=== PATIENT | male | born 1970 | race Caucasian/White ===

== ENCOUNTER 2017-11-14 21:21 | Inpatient (IN) | payer MEDICAID, SELFPAY ==
[2017-11-14 21:23] VITALS: BP 130/89; PULSE 130; RESP 20; TEMP 36.8; O2SAT 88; BMI 29.5
[2017-11-14 21:57] VITALS: O2SAT 94
--- NOTE | 2017-11-14 22:31 | EKG12_ITS ---
Test Reason : SOB Blood Pressure : / mmHG Vent. Rate : 117 BPM Atrial Rate : 117 BPM P-R Int : 168 ms QRS Dur : 086 ms QT Int : 334 ms P-R-T Axes : 063 -13 021 degrees QTc Int : 465 ms Sinus tachycardia Nonspecific T wave abnormality Abnormal ECG Confirmed by RUDY ERNST, TAMANNA ([id number]), communications editor CORKY MCCLAIN ([id number]) on 11/16/2017 1:52:34 PM Referred By: MELA Confirmed By:TAMANNA GRANT MD
--- NOTE | 2017-11-14 22:31 | CT_ITS ---
STUDY: CTA CHEST REASON FOR EXAM: Male, 47 years old. Hypoxia RADIATION DOSAGE (If Supplied By Facility): CTDIvol = ( 11.83 ) mGy, DLP = ( 462.52 ) mGycm TECHNIQUE: The examination was performed with the intravenous administration of 75 ml of Isovue 370 contrast material. Post-processing of the angiographic images was performed, with multiplanar reformation and 3D reconstruction. Individualized dose optimization techniques were used for this CT. COMPARISON: None. FINDINGS: There is moderate size filling defect in the right main pulmonary artery. Moderate size segmental and subsegmental filling defects are seen in the right upper lobe, right middle lobe, right lower lobe, left upper lobe, left lower lobe are consistent with pulmonary emboli. There is no demonstrated pulmonary embolism. Normal thoracic aorta and visualized great vessels. There is no demonstrated aortic dissection. Normal heart and pericardium. Normal mediastinum. Normal hilar regions. Normal visualized trachea and bronchi. The lungs are well expanded. Normal pulmonary parenchyma. Normal pleura. Normal chest wall structures. Normal osseous structures. Normal visualized upper abdomen. CT/CTA Chest W/WO Contrast IMPRESSION: Multiple moderate size bilateral pulmonary emboli in the segmental and subsegmental arteries and in the right main pulmonary artery. Electronically Signed: Warren Gordillo MD at 0:20 EST Tel , Service support ,
[2017-11-14] MEDS: 0.9% Normal Saline 1,000 ML 150 ML IV (22:38)
[2017-11-14 22:50] LABS: Absolute Lymphocyte Count 1.82 X10^3/ul (0.83-4.51); Absolute Neutrophil Count 7.1 X10^3/uL (2.0-7.7); Basophil# 0.02 X10^3/uL; Basophil% 0.2 % (0-1); Eosinophil# 0.06 X10^3/uL; Eosinophils% 0.6 % (0-5); Hematocrit 42.5 % (40-54); Hemoglobin 13.6 g/dl (13.0-16.5); Lymphocyte # 1.82 X10^3/ul (4.0); Lymphocyte % 18.2 % (19-41); Mean Corpuscular Hgb 24.9 pg (27.0-32.0); Mean Corpuscular Volume 77.7 fL (80-94); Mean Platelet Vol. 10.4 fl (6.2-12.0); Neutrophil # 7.08 X10^3/uL (2.7-7.7); Neutrophil % 70.8 % (47-70); POSITIVE COUNT NO; POSITIVE DIFFERENTIAL NO; POSITIVE MORPHOLOGY NO; Platelet Count 207 K/mm3 (150-450); RBC Distribution Width CV 18.7 % (11.6-14.6); RBC Distribution Width SD 51.4 fl (35.1-43.9); Red Blood Count 5.47 M/mm3 (4.6-6.2)
[2017-11-14 22:55] LABS: Anion Gap 10 (5-15); BUN 11 mg/dL (7-18); BUN/Creat Ratio 9.4 RATIO (10-20); Calcium,Total 8.7 mg/dL (8.5-10.1); Chloride 102 mmol/L (98-107); Creatinine, Serum 1.17 mg/dL (0.70-1.30); EST Glomerular Filtration Rate 71 mL/min (>60); Est Glom Filt Rate - Afr Amer 86 mL/min (>60); Estimated Creatinine Clearance 71.19 ml/min; Glucose 308 mg/dL (70-110); Potassium 4.1 mmol/L (3.5-5.1); Sodium Level 135 mmol/L (136-145)
[2017-11-14 23:23] VITALS: BP 136/86; PULSE 112; RESP 26; O2SAT 95
--- NOTE | 2017-11-14 23:26 | ED.DCSUM_ITS ---
- ER Visit Summary Date of Service: 11/14/17 Chief Complaint: Shortness of breath] History of Present Illness: The patient is a 47 M [presents with] shortness of breath for the last 2 days. Patient's had a cough for several weeks. Patient tells me that he was diagnosed with pulmonary embolisms in September 2017. Patient was placed on Eliquis however he ran out after about 30 days and never got the prescription refilled therefore he has been off of Eliquis for greater than a month. Patient complains of exertional dyspnea and feeling dizzy with standing and walking. Patient states that he checked his pulse ox at home and it was running in the 70s. Patient denies any chest pain per se. Patient denies any fevers. Physical Examination: [HEENT-PERRLA, EOMI. Cranial nerves II through XII grossly intact. TMs clear. Mucous membranes moist. No adenopathy. Vital signs-blood pressure 130/89, temp 98.2. Heart rate 130. Respiratory rate 20. Pulse ox was 88% on room air. Cardiovascular-regular rate and rhythm without murmur or ectopy Lungs-clear to auscultation, chest wall stable without crepitus or subcu emphysema Abdomen-normoactive bowel sounds, soft, nontender, no rebound or rigidity, no peritoneal signs. Extremities-intact ?4, normal range of motion, normal pulses, atraumatic] Test Results: [CBC with differential obtained for white blood cell count of 10, hemoglobin 13.6, hematocrit 42.5, platelets 207. Chemistries unremarkable. Troponin is 0.06. EKG obtained showed a sinus tachycardia with a rate of 117 bpm with some nonspecific ST changes. CTA of the chest interpreted by myself as large bilateral pulmonary emboli.] Emergency Department Course and Treatment: [Patient was given 1 mg/kg of Lovenox subcutaneously.] Patient was placed on O2 by Ventimask. Treatment Plan: [Admit] Disposition: [Admit] Impression: [Bilateral pulmonary emboli with hypoxemia] This note was generated with [employer] dictation software. It may contain incorrect words, spelling, and punctuation that were not noted in review of the chart prior to signing ED Disposition - Plan for ED Patient: Chief Complaint: Shortness of Breath Referrals: Care Physician,No Primary [Primary Care Provider] -
--- NOTE | 2017-11-14 23:37 | PCM.HP.STD ---
Problem List (1) Acute respiratory failure with hypoxia Status: Acute (2) Cardiogenic shock Status: Acute (3) Pulmonary emboli Status: Acute Qualifiers: Pulmonary embolism type: saddle Chronicity: acute Acute cor pulmonale presence: with acute cor pulmonale Qualified Code(s): I26.02 - Saddle embolus of pulmonary artery with acute cor pulmonale History of Present Illness Date of Admission: 11/14/17 Chief Complaint: Bilateral PE The patient is a 47 year old male w/ h/o PE admitted for acute respiratory failure secondary to bilateral PE. He was admitted in September for PE and was placed on eliquis. However, there was a change in his PCP. He was unable to get the prescription for the med and therefore stopped going to the doctor and stopped his eliquis. He has been SOB x 2-3 days. He has a minimal dry cough associated with his SOB. His SOB has been getting progressively worse. Nothing appeared to make it better or worse. SOB is persistent and so severe that it interfered with his ADLs. He get dizzy when walking or standing. He checked his vitals at home and found himself to be hypoxic. He was taken to the ED by his brother for workup of his SOB> Past Medical History Allergies No Known Allergies Allergy (Verified 11/14/17 21:28) Home Medications: Ambulatory Orders Medication Instructions Recorded Apixaban [Eliquis] 5 mg PO BID #90 tablet 09/04/17 Lisinopril [Zestril] 10 mg PO DAILY #30 tablet 09/04/17 Metformin HCl [Glucophage] 500 mg PO BIDCM #90 tablet 09/04/17 Smoking Status: Former smoker - *Family History Maternal History Items: No pertinent history Review of Systems Constitutional: Denies: Chills, Fever, Weight Change HEENT: Denies: Head Aches, Sinus Congestion, Sinus Drainage Cardiovascular: Denies: Chest Pain, Palpitations Respiratory: Reports: Cough, Shortness of breath upon exertion, Sputum production Gastrointestinal: Denies: Abdominal Pain, Nausea, Vomiting Genitourinary: Denies: Dysuria Musculoskeletal: Denies: Joint Pain, Joint Tenderness Skin: Denies: Rash, Wounds Neurological: Denies: Numbness, Tingling, Focal weakness Psychiatric: Denies: Anxiety, Depression, Homicidal Ideations, Suicidal Ideations Hematologic/ Lymphatic: Denies: Easy Bruising, Easy Bleeding VTE Information - Inpt Only VTE Present on Admission: No VTE Mechan Device Prophylaxis: SCD's VTE Pharm Prophylaxis ordered?: Yes Patient Problems: Active and Suspected Problems Acute respiratory failure with hypoxia (Acute) - Physical Exam General: Alert, Oriented x3, Cooperative HEENT: Atraumatic, PERRLA, EOMI, Normocephalic Neck: Supple, No JVD, Negative Carotid Bruits Lungs: Clear to auscultation, Normal air movement Cardiovascular: Regular rate, No murmurs Abdomen: Bowel Sounds Present, Soft, Non Tender Extremities: No edema, Capillary Refill Less than 3 Seconds Skin: No rashes, No breakdown Musculoskeletal: No Tenderness to Palpation of Joints or Extremities Neurological: Cranial nerves II-XII grossly intact Psych/Mental Status: Normal Affect, Appropriate Vital Signs Temp Pulse Resp BP Pulse Ox 98.2 F 112 H 26 H 136/86 H 95 11/14/17 21:23 11/14/17 23:23 11/14/17 23:23 11/14/17 23:23 11/14/17 23:23 Oxygen Delivery Method Venturi Mask Weight: 82.8 kg Body Mass Index (BMI) 29.5 Laboratory Tests Past 24 Hrs 11/14/17 11/14/17 21:50 21:50 WBC 10.0 RBC 5.47 Hgb 13.6 Hct 42.5 MCV 77.7 L MCH 24.9 L MCHC 32.0 RDW 18.7 H RDW Differential 51.4 H Plt Count 207 MPV 10.4 Immature Gran % (Auto) 0.200 Neut % (Auto) 70.8 H Lymph % (Auto) 18.2 L [place]leigh % (Auto) 10.0 Eos % (Auto) 0.6 Baso % (Auto) 0.2 Absolute Neuts (auto) 7.1 Absolute Lymphs (auto) 1.82 Total Counted Not Reportable Sodium 135 L Potassium 4.1 Chloride 102 Carbon Dioxide 23.0 Anion Gap 10 BUN 11 Creatinine 1.17 Estim Creat Clear Calc 71.19 Est GFR (MDRD) Af Amer 86 Est GFR (MDRD) Non-Af 71 BUN/Creatinine Ratio 9.4 L Glucose 308 H Calcium 8.7 Troponin I 0.06 Assessment/Plan Active and Suspected Problems Acute respiratory failure with hypoxia (Acute) 47 year old male w/ h/o PE admitted for acute respiratory failure secondary to bilateral PE. 1) Multiple bilateral PE: Most likely secondary to noncompliant w/ eliquis. Will start lovenox anticoagulation dose. Will also get trops and ECHO to look for right heart strain. Monitor. 2) Acute hypoxic respiratory failure: C/w oxygen. Most likely secondary to PE. Monitor. 3) HTN: Resume home meds. Monitor
[2017-11-15] VITALS (24 sets, daily range): BP systolic 86–146; BP diastolic 48–92; PULSE 75–124; RESP 16–28; TEMP 36.2–37.1; O2SAT 91–97; BMI 29.5
--- NOTE | 2017-11-15 00:29 | ED.RN ---
MED SURG BILATERAL PE PONCHO
[2017-11-15] MEDS: Enoxaparin 80 MG/0.8 ML Syringe SC ×2 (01:28→18:03)
[2017-11-15] MEDS: 0.9% Normal Saline 1,000 ML 100 ML IV (01:29)
[2017-11-15 02:13] LABS: BNP,B-Type NATRIURETIC PEPTIDE 168.7 pg/mL (0-100)
--- NOTE | 2017-11-15 05:55 | ECHOD_ITS ---
Reason For Study: ARRHYTHMIA Procedure This was a 2D Doppler, Color Flow transthoracic echocardiogram. Exam performed portable in patient room. Left Ventricle Normal LV size. Left ventricular systolic function is normal. The estimated ejection fraction is 60 %. No regional wall motion abnormalities noted. Right Ventricle Mildly dilated right ventricle. Mild global right ventricular systolic dysfunction. Atria Normal left atrium. Normal right atrium. Mitral Valve Normal mitral valve. Tricuspid Valve Normal tricuspid valve. Moderate (2+) tricuspid valve insufficiency. Pulmonary artery systolic pressure is 70 mmHg. Moderate to severe pulmonary hypertension. Aortic Valve The aortic valve is not well visualized. Pulmonic Valve The pulmonic valve is not well visualized. Great Vessels Mildly dilated aortic root. The pulmonary artery is normal size. Normal inferior vena cava. Pericardium/Pleural No pericardial effusion. MMode/2D Measurements & Calculations LVIDd: 3.5 cm IVSd: 1.3 cm Ao root diam: 3.9 cm LVIDs: 1.8 cm LVPWd: 0.98 cm LA dimension: 3.4 cm RVDd: 4.4 cm FS: 48.6 % EDV(MOD-sp4): 70.2 ml EDV(MOD-sp2): 57.3 ml SV(MOD-sp4): 55.7 ml ESV(MOD-sp4): 14.6 ml EF(MOD-sp2): 50.4 % EF(MOD-sp4): 79.3 % SV(MOD-sp2): 28.9 ml Doppler Measurements & Calculations MV E max dahlia: 71.8 cm/sec Ao V2 max: 128.9 cm/sec LV V1 max: 108.0 cm/sec MV A max dahlia: 126.6 cm/sec Ao max P.6 mmHg LV V1 max P.7 mmHg MV E/A: 0.57 PA V2 max: 68.8 cm/sec TR max dahlia: 407.5 cm/sec TR max P.4 mmHg Interpretation Summary Normal LV size. Left ventricular systolic function is normal. The estimated ejection fraction is 60 %. Moderate (2+) tricuspid valve insufficiency. Pulmonary artery systolic pressure is 70 mmHg. Moderate to severe pulmonary hypertension Compared to the previous the pulmnoary pressures are slightly higher Ordering Physician: Julian Del Toro Performed By: Ayleen Funez, ANGIE, RVT
[2017-11-15 06:19] LABS: Hematocrit 38.5 % (40-54); Hemoglobin 12.6 g/dl (13.0-16.5); Mean Corp Hgb Conc 32.7 g/gl (32-36); Mean Corpuscular Hgb 25.3 pg (27.0-32.0); Mean Corpuscular Volume 77.3 fL (80-94); Mean Platelet Vol. 11.3 fl (6.2-12.0); Platelet Count 203 K/mm3 (150-450); RBC Distribution Width CV 19.8 % (11.6-14.6); RBC Distribution Width SD 52.7 fl (35.1-43.9); Red Blood Count 4.98 M/mm3 (4.6-6.2); White Blood Count 11.3 K/mm3 (4.4-11.0)
[2017-11-15 06:27] LABS: Scan Indicated on CBC? Y/N NO
[2017-11-15 06:56] LABS: Bedside Glucose 239 mg/dL (70-110)
[2017-11-15 07:26] LABS: Anion Gap 13 (5-15); BUN 10 mg/dL (7-18); BUN/Creat Ratio 10.7 RATIO (10-20); Chloride 102 mmol/L (98-107); Creatinine, Serum 0.94 mg/dL (0.70-1.30); EST Glomerular Filtration Rate 92 mL/min (>60); Est Glom Filt Rate - Afr Amer 111 mL/min (>60); Estimated Creatinine Clearance 88.61 ml/min; Glucose 234 mg/dL (70-110); Potassium 3.8 mmol/L (3.5-5.1); Sodium Level 135 mmol/L (136-145)
[2017-11-15] MEDS: Lisinopril 10 MG Tablet PO (09:35)
[2017-11-15] MEDS: Ipratropium/Albuterol Sulfate 3 ML AMPUL.NEB INHALATION ×3 (11:23→19:45)
[2017-11-15 12:01] LABS: Bedside Glucose 283 mg/dL (70-110)
--- NOTE | 2017-11-15 13:18 | PN_ITS ---
<Abdirahman Carter - Last Filed: 11/15/17 12:51> Patient Problems: Active and Suspected Problems Acute respiratory failure with hypoxia (Acute) Subjective: Pt resting comfortably in bed, on O2 - does not normally use O2. He is tachy at rest but does not sense palpitations. He becomes very dyspneic just walking to the bathroom. He was prescribed eliquis and had no problem with affordability as it was only $4 for a months supple but stopped taking it because he was fired by his PCP and did not get another PCP therefore never had a refill. He had no follow up care after his initial PE in september 2017. He also stopped taking all medications including metformin. He has no CP. - Physical Exam General: Alert, Oriented x3, Cooperative HEENT: Atraumatic, PERRLA, EOMI, Normocephalic Neck: Supple, No JVD, Negative Carotid Bruits Lungs: Clear to auscultation, Normal air movement Cardiovascular: Regular rate, No murmurs Abdomen: Bowel Sounds Present, Soft, Non Tender Extremities: No edema, Capillary Refill Less than 3 Seconds Skin: No rashes, No breakdown Musculoskeletal: No Tenderness to Palpation of Joints or Extremities Neurological: Cranial nerves II-XII grossly intact Psych/Mental Status: Normal Affect, Appropriate Vital Signs Temp Pulse Resp BP Pulse Ox 98.3 F 118 H 20 H 114/72 91 11/15/17 11:12 11/15/17 11:24 11/15/17 11:24 11/15/17 11:12 11/15/17 11:24 Oxygen Flow Rate 4 Oxygen Delivery Method Nasal Cannula Weight: 81.6 kg Intake and Output for Last 24 Hours 11/13/17 11/14/17 11/15/17 23:59 23:59 23:59 Intake Total 1090 / 1090 Balance 1090 / 1090 Laboratory Tests Past 24 Hrs 11/15/17 11/15/17 11/15/17 01:29 05:47 05:47 WBC 11.3 H RBC 4.98 Hgb 12.6 L Hct 38.5 L MCV 77.3 L MCH 25.3 L MCHC 32.7 RDW 19.8 H RDW Differential 52.7 H Plt Count 203 MPV 11.3 Sodium 135 L Potassium 3.8 Chloride 102 Carbon Dioxide 20.0 L Anion Gap 13 BUN 10 Creatinine 0.94 Estim Creat Clear Calc 88.61 Est GFR (MDRD) Af Amer 111 Est GFR (MDRD) Non-Af 92 BUN/Creatinine Ratio 10.7 Glucose 234 H Calcium 8.0 L Troponin I 0.11 H 11/15/17 11/15/17 05:47 11:25 WBC RBC Hgb Hct MCV MCH MCHC RDW RDW Differential Plt Count MPV Sodium Potassium Chloride Carbon Dioxide Anion Gap BUN Creatinine Estim Creat Clear Calc Est GFR (MDRD) Af Amer Est GFR (MDRD) Non-Af BUN/Creatinine Ratio Glucose Calcium Troponin I 0.12 H 0.10 H POC Glucose 11/15/17 11/15/17 11:05 06:42 POC Glucose 283 H 239 H Assessment/Plan Active and Suspected Problems Acute respiratory failure with hypoxia (Acute) 1. Worsening PE from september 03 medication noncompliance - (see CTA report) multiple moderate size PEs. therapeutic lovenox. Repeat echo pending. Still tachy and with significant dyspnea with mild exertion and requiring O2. Last coag panel demonstrated protein C def - c/s placed to hematology. Pt will likely need lifelong anticoagulation. Plan to restart eliquis at discharge. -Troponin indeterminate but flat. -Mild BNP elevated. No edema, lungs clear. Maybe 2/2 pulmonary HTN - 2. Acute hypoxic respiratory failure 2/2 above - incentive spirometry, aerosols. SOB, tachypnea, increased O2 requirement. 3. Pulmonary HTN on last echo. Repeat pending. May need pulmonary follow up at [place]. 4. Mild leukocytosis - doubt infectious etiology. Afebrile. 5. Type 2 DM - will hold off on restarting metformin as he just had contrast CTA chest. SSI. DC planning: pending clinical improvement. Needs to establish PCP. This patient was seen by Abdirahman Carter PA-C under the supervision of Doctor Mendes. <Delia Mendes - Last Filed: 11/15/17 13:46> - Physical Exam Vital Signs Temp Pulse Resp BP Pulse Ox 98.3 F 122 H 20 H 114/72 91 11/15/17 11:12 11/15/17 13:22 11/15/17 11:24 11/15/17 11:12 11/15/17 11:24 Oxygen Flow Rate 4 Oxygen Delivery Method Nasal Cannula Weight: 179 lb 14.355 oz Intake and Output for Last 24 Hours 11/13/17 11/14/17 11/15/17 23:59 23:59 23:59 Intake Total 1090 / 1090 Balance 1090 / 1090 Laboratory Tests Past 24 Hrs 11/15/17 11/15/17 11/15/17 01:29 05:47 05:47 WBC 11.3 H RBC 4.98 Hgb 12.6 L Hct 38.5 L MCV 77.3 L MCH 25.3 L MCHC 32.7 RDW 19.8 H RDW Differential 52.7 H Plt Count 203 MPV 11.3 Sodium 135 L Potassium 3.8 Chloride 102 Carbon Dioxide 20.0 L Anion Gap 13 BUN 10 Creatinine 0.94 Estim Creat Clear Calc 88.61 Est GFR (MDRD) Af Amer 111 Est GFR (MDRD) Non-Af 92 BUN/Creatinine Ratio 10.7 Glucose 234 H Calcium 8.0 L Troponin I 0.11 H 11/15/17 11/15/17 05:47 11:25 WBC RBC Hgb Hct MCV MCH MCHC RDW RDW Differential Plt Count MPV Sodium Potassium Chloride Carbon Dioxide Anion Gap BUN Creatinine Estim Creat Clear Calc Est GFR (MDRD) Af Amer Est GFR (MDRD) Non-Af BUN/Creatinine Ratio Glucose Calcium Troponin I 0.12 H 0.10 H POC Glucose 11/15/17 11/15/17 11:05 06:42 POC Glucose 283 H 239 H Assessment/Plan Hospitalist note: I am seeing this patient in conjunction with Abdirahman Carter. I independently seen and examined the patient. Progress note above , laboratory data and imaging studies reviewed. I agree with above treatment plan. He was admitted because of worsening shortness of breath. He was found to have multiple moderate sized bilateral pulmonary emboli in the segmental and subsegmental pulmonary arteries as well as right main pulmonary artery. He was admitted on September, for multiple pulmonary emboli bilaterally. He was discharged on Eliquis that he took for 1 month and he stopped taking it. During that admission, he was requested to follow-up with his PCP in 1 week but he did not. Also, during that admission, hypercoagulability workup sent and it revealed low protein C antigen and functional protein C. - Physical Exam General: Alert, Oriented x3, Cooperative, moderately short of breath. HEENT: Atraumatic, PERRLA, EOMI. Neck: Supple, No JVD, Negative Carotid Bruits, Trachea Midline, Thyroid Normal. Lungs: Diminished breath sounds bilateral, otherwise clear no rhonchi, short of breath, tachypneic, no wheeze, No rales. Cardiovascular: Regular rate, Regular Rhythm, tachycardia, normal S1, Normal S2 , PMI Normal. Abdomen: Bowel Sounds Present, Soft, Non Tender, Non-Distended, No Hepato- splenomegaly. Extremities: No clubbing, No cyanosis, No edema Skin: No rashes, No breakdown Neurological: Neuro grossly intact, cranial nerves are intact. Power is 5 x 5 in all limbs. Psychiatric: Appropriate, normal affect. Assessment and plan: #1 multiple moderate sized bilateral pulmonary emboli/possible protein C deficiency: In context of history of PEs back in September,, found to have low functional protein C as well as low protein C antigen. Patient was not compliant, took liquids only for a month and he did not follow-up with his PCP. EKG reviewed, showed sinus tachycardia and nonspecific ST and T-wave changes, no acute ischemic changes. Troponin is indeterminate. He is on subcu Lovenox twice daily. 2D echocardiogram ordered. Plan: Continue Lovenox twice daily, awaiting 2D echocardiogram, hematology consult. #2 pulmonary hypertension: During the last admission, his echocardiogram revealed ejection fraction of 55% and moderately severe pulmonary hypertension. This is could be due to venoocclusive pulmonary disease. 2D echocardiogram ordered. He is on Lovenox for acute PE. Patient will need follow-up echocardiogram in 4-6 weeks. #3 acute hypoxic respiratory failure: Secondary to above. Plan as above. Awaiting 2D echocardiogram. #4 type 2 diabetes mellitus: ADA diet, Accu-Cheks, insulin sliding scale. This note was generated with [employer] dictation software. It may contain incorrect words, spelling, and punctuation that were not noted in checking the note before signing. Code Visit Inpatient E&M: 27090 [facility] L[facility]
--- NOTE | 2017-11-15 15:22 | ONC.CONSULT ---
Consult Referring Physician: Dr. Fisher. Subjective Date of Service:: 11/15/17 Chief Complaint: Asked to see Pt for thrombophilia. History of Present Illness: 47-year-old man was admitted on September 02, 2017 with pulmonary embolism, at that time his protein C activity was less than normal. He was placed on Eliquis, discontinued it after losing his primary care physician. He was admitted on November 14 2017 with shortness of breath, CTA shows progressive pulmonary embolism. He is now on admission being treated with Lovenox and oxygen. Power of Cashier Host/Hostess: No Living Will: No Health History: Social History Smoking Status Former smoker PMH: PE in 2016, DM, HTN. FH: Denies clotting or bleeding problems. Allergies/Adverse Reactions: Allergy/AdvReac Type Severity Reaction Status Date / Time No Known Allergies Allergy Verified 11/14/17 21:28 Home Medications Medication Instructions Recorded Apixaban [Eliquis] 5 mg PO BID #90 tablet 09/04/17 Lisinopril [Zestril] 10 mg PO DAILY #30 tablet 09/04/17 Metformin HCl [Glucophage] 500 mg PO BIDCM #90 tablet 09/04/17 Review of Systems Constitutional:: Denies: Weakness, Fatigue, Fever, Sweats Cardiovascular:: Denies: Chest pain, Palpitations, Dyspnea on exertion, Orthopnea, PND, Shortness of breath Respiratory: Reports: Shortness of Breath, Shortness of breath upon exertion. Denies: Cough, Hemoptysis, Wheezing Gastrointestinal:: Denies: Abdominal pain, Nausea, Vomiting, Diarrhea, Constipation, Hematochezia Genitourinary: Denies: Dysuria, Hematuria, 15, Flank pain Musculoskeletal:: Denies: Back pain, Myalgia, Arthralgia Skin: Denies: Rash, Skin Changes, Wounds Neurological:: Denies: Headache, Dizziness, Visual changes, Tinnitus, Hearing loss Psychiatric: Denies: Anxiety, Depression, Homicidal Ideations, Suicidal Ideations Vital Signs Height 5 ft 6 in Weight: 81.6 kg Weight in Pounds 179.9 lbs Pulse Ox 91 Temperature 98.3 F Pulse Rate 122 Respiratory Rate 20 Blood Pressure [BP] 139/83 Blood Pressure 114/72 Blood Pressure Position [BP] Semi-Fowlers Blood Pressure Position Sitting - Physical Exam General: Alert, Oriented x3, No apparent distress, - - on O2 by NC. HEENT: Atraumatic, PERRLA, EOMI, Normocephalic Oropharynx:: Dry mucosa Neck:: Supple, Trachea midline. Negative for: JVD, bilateral Cardiac:: Regular rate, Regular rhythm, Normal S1, Normal S2. Negative for: Murmur Lungs: Clear to auscultation, Excusion symmetrical. Negative for: Rhonchi, Wheezes Abdomen:: Bowel sounds x 4, Soft, Non-tender, Non-distended. Negative for: Hepatosplenomegaly Extremities:: Negative for: Cyanosis, Edema Neurological: Neuro grossly intact Skin:: Negative for: Lesions, Rash, Petechiae, Ecchymosis Psychiatric:: Appropriate affect, Euthymic Lymphatics:: Negative for: Cervical lymphadenopathy, Supraclavicular lymphadenopathy, Axillary lymphadenopathy Laboratory Data: Laboratory Tests 11/15/17 11/15/17 11/15/17 Range/Units 11:25 11:05 06:42 WBC (4.4-11.0) K/mm3 RBC (4.6-6.2) M/mm3 Hgb (13.0-16.5) g/dl Hct (40-54) % MCV (80-94) fL MCH (27.0-32.0) pg MCHC (32-36) g/gl RDW (11.6-14.6) % RDW Differential (35.1-43.9) fl Plt Count (150-450) K/mm3 MPV (6.2-12.0) fl Sodium (136-145) mmol/L Potassium (3.5-5.1) mmol/L Chloride (98-107) mmol/L Carbon Dioxide (21.0-32.0) mmol/L Anion Gap (5-15) BUN (7-18) mg/dL Creatinine (0.70-1.30) mg/dL Estim Creat Clear Calc ml/min Est GFR (MDRD) Af Amer (>60) mL/min Est GFR (MDRD) Non-Af (>60) mL/min BUN/Creatinine Ratio (10-20) RATIO Glucose (70-110) mg/dL Calcium (8.5-10.1) mg/dL Troponin I 0.10 H (<0.06) ng/mL POC Glucose 283 H 239 H (70-110) mg/dL 11/15/17 11/15/17 11/15/17 Range/Units 05:47 05:47 05:47 WBC 11.3 H (4.4-11.0) K/mm3 RBC 4.98 (4.6-6.2) M/mm3 Hgb 12.6 L (13.0-16.5) g/dl Hct 38.5 L (40-54) % MCV 77.3 L (80-94) fL MCH 25.3 L (27.0-32.0) pg MCHC 32.7 (32-36) g/gl RDW 19.8 H (11.6-14.6) % RDW Differential 52.7 H (35.1-43.9) fl Plt Count 203 (150-450) K/mm3 MPV 11.3 (6.2-12.0) fl Sodium 135 L (136-145) mmol/L Potassium 3.8 (3.5-5.1) mmol/L Chloride 102 (98-107) mmol/L Carbon Dioxide 20.0 L (21.0-32.0) mmol/L Anion Gap 13 (5-15) BUN 10 (7-18) mg/dL Creatinine 0.94 (0.70-1.30) mg/dL Estim Creat Clear Calc 88.61 ml/min Est GFR (MDRD) Af Amer 111 (>60) mL/min Est GFR (MDRD) Non-Af 92 (>60) mL/min BUN/Creatinine Ratio 10.7 (10-20) RATIO Glucose 234 H (70-110) mg/dL Calcium 8.0 L (8.5-10.1) mg/dL Troponin I 0.12 H (<0.06) ng/mL POC Glucose (70-110) mg/dL 11/15/17 Range/Units 01:29 WBC (4.4-11.0) K/mm3 RBC (4.6-6.2) M/mm3 Hgb (13.0-16.5) g/dl Hct (40-54) % MCV (80-94) fL MCH (27.0-32.0) pg MCHC (32-36) g/gl RDW (11.6-14.6) % RDW Differential (35.1-43.9) fl Plt Count (150-450) K/mm3 MPV (6.2-12.0) fl Sodium (136-145) mmol/L Potassium (3.5-5.1) mmol/L Chloride (98-107) mmol/L Carbon Dioxide (21.0-32.0) mmol/L Anion Gap (5-15) BUN (7-18) mg/dL Creatinine (0.70-1.30) mg/dL Estim Creat Clear Calc ml/min Est GFR (MDRD) Af Amer (>60) mL/min Est GFR (MDRD) Non-Af (>60) mL/min BUN/Creatinine Ratio (10-20) RATIO Glucose (70-110) mg/dL Calcium (8.5-10.1) mg/dL Troponin I 0.11 H (<0.06) ng/mL POC Glucose (70-110) mg/dL Diagnostic Data: Diagnostic Data Chest CTA 11/14/17 22:31 IMPRESSION: Multiple moderate size bilateral pulmonary emboli in the segmental and subsegmental arteries and in the right main pulmonary artery. Electronically Signed: Warren Gordillo MD at 0:20 EST Tel , Service support , Assessment and Plan Pulmonary Embolism now on Lovenox, O2 therapy. It is not clear if Pt has protein C deficiency as the original test was done when Pt had acute PE. He will need thrombophilia work up he is clinically stable and off anticoagulants. Suggestion is to continue Lovenox, to change to oral anticoagulant when clinically stable. If discharged, should follow up in [facility] for further work up for thrombophilia. I will follow as in patient unless new problems arise. Thank you. Medications: Medications Added to Medication List This Visit Category Date Time Status Acetaminophen [Tylenol] Med 11/15/17 11:00 Active 650 mg PO Q6H PRN PRN Insulin Aspart [Novolog Flexpen (BKC)] Med 11/15/17 07:00 Active See Protocol SC ACHS Ipratropium/Albuterol Sulfate [Duoneb] Med 11/15/17 09:00 Active 3 ml INHALATION Q4HWA.RT Lisinopril [Zestril] Med 11/15/17 10:00 Active 10 mg PO DAILY Ondansetron [Zofran] Med 11/15/17 11:01 Active 4 mg IV Q8H PRN PRN Primary Care Provider: No Primary Care Phys Referring Provider: (1) Protein C deficiency Status: Chronic (2) Pulmonary emboli Status: Acute Qualifiers: Pulmonary embolism type: saddle Chronicity: acute Acute cor pulmonale presence: with acute cor pulmonale Qualified Code(s): I26.02 - Saddle embolus of pulmonary artery with acute cor pulmonale Code Visit Office Visits / Consults: [id number] IP Consult L4
--- NOTE | 2017-11-15 15:32 | CON.PCM_ITS ---
Consult Referring Physician: Dr. Fisher. Subjective Date of Service:: 11/15/17 Chief Complaint: Asked to see Pt for thrombophilia. History of Present Illness: 47-year-old man was admitted on September 02, 2017 with pulmonary embolism, at that time his protein C activity was less than normal. He was placed on Eliquis , discontinued it after losing his primary care physician. He was admitted on November 14 2017 with shortness of breath, CTA shows progressive pulmonary embolism. He is now on admission being treated with Lovenox and oxygen. Power of Paperboard Box Maker: No Living Will: No Health History: Social History Smoking Status Former smoker PMH: PE in 2016, DM, HTN. FH: Denies clotting or bleeding problems. Allergies/Adverse Reactions: Allergy/AdvReac Type Severity Reaction Status Date / Time No Known Allergies Allergy Verified 11/14/17 21:28 Home Medications Medication Instructions Recorded Apixaban [Eliquis] 5 mg PO BID #90 tablet 09/04/17 Lisinopril [Zestril] 10 mg PO DAILY #30 tablet 09/04/17 Metformin HCl [Glucophage] 500 mg PO BIDCM #90 tablet 09/04/17 Review of Systems Constitutional:: Denies: Weakness, Fatigue, Fever, Sweats Cardiovascular:: Denies: Chest pain, Palpitations, Dyspnea on exertion, Orthopnea, PND, Shortness of breath Respiratory: Reports: Shortness of Breath, Shortness of breath upon exertion. Denies: Cough, Hemoptysis, Wheezing Gastrointestinal:: Denies: Abdominal pain, Nausea, Vomiting, Diarrhea, Constipation, Hematochezia Genitourinary: Denies: Dysuria, Hematuria, 15, Flank pain Musculoskeletal:: Denies: Back pain, Myalgia, Arthralgia Skin: Denies: Rash, Skin Changes, Wounds Neurological:: Denies: Headache, Dizziness, Visual changes, Tinnitus, Hearing loss Psychiatric: Denies: Anxiety, Depression, Homicidal Ideations, Suicidal Ideations Vital Signs Height 5 ft 6 in Weight: 81.6 kg Weight in Pounds 179.9 lbs Pulse Ox 91 Temperature 98.3 F Pulse Rate 122 Respiratory Rate 20 Blood Pressure [BP] 139/83 Blood Pressure 114/72 Blood Pressure Position [BP] Semi-Fowlers Blood Pressure Position Sitting - Physical Exam General: Alert, Oriented x3, No apparent distress, - - on O2 by NC. HEENT: Atraumatic, PERRLA, EOMI, Normocephalic Oropharynx:: Dry mucosa Neck:: Supple, Trachea midline. Negative for: JVD, bilateral Cardiac:: Regular rate, Regular rhythm, Normal S1, Normal S2. Negative for: Murmur Lungs: Clear to auscultation, Excusion symmetrical. Negative for: Rhonchi, Wheezes Abdomen:: Bowel sounds x 4, Soft, Non-tender, Non-distended. Negative for: Hepatosplenomegaly Extremities:: Negative for: Cyanosis, Edema Neurological: Neuro grossly intact Skin:: Negative for: Lesions, Rash, Petechiae, Ecchymosis Psychiatric:: Appropriate affect, Euthymic Lymphatics:: Negative for: Cervical lymphadenopathy, Supraclavicular lymphadenopathy, Axillary lymphadenopathy Laboratory Data: Laboratory Tests 3 11/15/17 11/15/17 11/15/17 Range/Units 11:25 11:05 06:42 WBC (4.4-11.0) K/mm3 RBC (4.6-6.2) M/mm3 Hgb (13.0-16.5) g/dl Hct (40-54) % MCV (80-94) fL MCH (27.0-32.0) pg MCHC (32-36) g/gl RDW (11.6-14.6) % RDW Differential (35.1-43.9) fl Plt Count (150-450) K/mm3 MPV (6.2-12.0) fl Sodium (136-145) mmol/L Potassium (3.5-5.1) mmol/L Chloride (98-107) mmol/L Carbon Dioxide (21.0-32.0) mmol/L Anion Gap (5-15) BUN (7-18) mg/dL Creatinine (0.70-1.30) mg/dL Estim Creat Clear Calc ml/min Est GFR (MDRD) Af Amer (>60) mL/min Est GFR (MDRD) Non-Af (>60) mL/min BUN/Creatinine Ratio (10-20) RATIO Glucose (70-110) mg/dL Calcium (8.5-10.1) mg/dL Troponin I 0.10 H (<0.06) ng/mL POC Glucose 283 H 239 H (70-110) mg/dL 3 11/15/17 11/15/17 11/15/17 Range/Units 05:47 05:47 05:47 WBC 11.3 H (4.4-11.0) K/mm3 RBC 4.98 (4.6-6.2) M/mm3 Hgb 12.6 L (13.0-16.5) g/dl Hct 38.5 L (40-54) % MCV 77.3 L (80-94) fL MCH 25.3 L (27.0-32.0) pg MCHC 32.7 (32-36) g/gl RDW 19.8 H (11.6-14.6) % RDW Differential 52.7 H (35.1-43.9) fl Plt Count 203 (150-450) K/mm3 MPV 11.3 (6.2-12.0) fl Sodium 135 L (136-145) mmol/L Potassium 3.8 (3.5-5.1) mmol/L Chloride 102 (98-107) mmol/L Carbon Dioxide 20.0 L (21.0-32.0) mmol/L Anion Gap 13 (5-15) BUN 10 (7-18) mg/dL Creatinine 0.94 (0.70-1.30) mg/dL Estim Creat Clear Calc 88.61 ml/min Est GFR (MDRD) Af Amer 111 (>60) mL/min Est GFR (MDRD) Non-Af 92 (>60) mL/min BUN/Creatinine Ratio 10.7 (10-20) RATIO Glucose 234 H (70-110) mg/dL Calcium 8.0 L (8.5-10.1) mg/dL Troponin I 0.12 H (<0.06) ng/mL POC Glucose (70-110) mg/dL 3 11/15/17 Range/Units 01:29 WBC (4.4-11.0) K/mm3 RBC (4.6-6.2) M/mm3 Hgb (13.0-16.5) g/dl Hct (40-54) % MCV (80-94) fL MCH (27.0-32.0) pg MCHC (32-36) g/gl RDW (11.6-14.6) % RDW Differential (35.1-43.9) fl Plt Count (150-450) K/mm3 MPV (6.2-12.0) fl Sodium (136-145) mmol/L Potassium (3.5-5.1) mmol/L Chloride (98-107) mmol/L Carbon Dioxide (21.0-32.0) mmol/L Anion Gap (5-15) BUN (7-18) mg/dL Creatinine (0.70-1.30) mg/dL Estim Creat Clear Calc ml/min Est GFR (MDRD) Af Amer (>60) mL/min Est GFR (MDRD) Non-Af (>60) mL/min BUN/Creatinine Ratio (10-20) RATIO Glucose (70-110) mg/dL Calcium (8.5-10.1) mg/dL Troponin I 0.11 H (<0.06) ng/mL POC Glucose (70-110) mg/dL Diagnostic Data: Diagnostic Data Chest CTA 11/14/17 22:31 IMPRESSION: Multiple moderate size bilateral pulmonary emboli in the segmental and subsegmental arteries and in the right main pulmonary artery. Electronically Signed: Warren Gordillo MD at 0:20 EST Tel , Service support , Assessment and Plan Pulmonary Embolism now on Lovenox, O2 therapy. It is not clear if Pt has protein C deficiency as the original test was done when Pt had acute PE. He will need thrombophilia work up he is clinically stable and off anticoagulants. Suggestion is to continue Lovenox, to change to oral anticoagulant when clinically stable. If discharged, should follow up in [facility] for further work up for thrombophilia. I will follow as in patient unless new problems arise. Thank you. Medications: Medications Added to Medication List This Visit Category Date Time Status Acetaminophen [Tylenol] Med 11/15/17 11:00 Active 650 mg PO Q6H PRN PRN Insulin Aspart [Novolog Flexpen (BKC)] Med 11/15/17 07:00 Active See Protocol SC ACHS Ipratropium/Albuterol Sulfate [Duoneb] Med 11/15/17 09:00 Active 3 ml INHALATION Q4HWA.RT Lisinopril [Zestril] Med 11/15/17 10:00 Active 10 mg PO DAILY Ondansetron [Zofran] Med 11/15/17 11:01 Active 4 mg IV Q8H PRN PRN Primary Care Provider: No Primary Care Phys Referring Provider: (1) Protein C deficiency Status: Chronic (2) Pulmonary emboli Status: Acute Qualifiers: Pulmonary embolism type: saddle Chronicity: acute Acute cor pulmonale presence: with acute cor pulmonale Qualified Code(s): I26.02 - Saddle embolus of pulmonary artery with acute cor pulmonale Code Visit Office Visits / Consults: [id number] IP Consult L4
[2017-11-15 17:06] LABS: Bedside Glucose 386 mg/dL (70-110)
--- NOTE | 2017-11-15 18:05 | EKG12_ITS ---
Test Reason : HYPOTENSION Blood Pressure : / mmHG Vent. Rate : 112 BPM Atrial Rate : 112 BPM P-R Int : 142 ms QRS Dur : 088 ms QT Int : 346 ms P-R-T Axes : 061 -15 -17 degrees QTc Int : 472 ms Sinus tachycardia Leftward axis Low voltage QRS (limb leads) T wave abnormality, consider anterior ischemia Abnormal ECG Confirmed by PAULO ERNST, MO ([id number]), pictures editor CORKY MCCLAIN ([id number]) on 11/19/2017 1:30:03 PM Referred By: APRYL Confirmed By:MO BATES MD
[2017-11-15 18:11] LABS: Bedside Glucose 363 mg/dL (70-110)
[2017-11-15] MEDS: 0.9% Normal Saline 1,000 ML 500 ML IV (18:16)
[2017-11-15 21:51] LABS: Bedside Glucose 363 mg/dL (70-110)
[2017-11-16] VITALS (20 sets, daily range): BP systolic 91–123; BP diastolic 55–73; PULSE 93–141; RESP 16–18; TEMP 36.3–37.1; O2SAT 88–98
--- NOTE | 2017-11-16 05:55 | EKG12_ITS ---
Test Reason : MORNING EKG Blood Pressure : / mmHG Vent. Rate : 103 BPM Atrial Rate : 103 BPM P-R Int : 146 ms QRS Dur : 086 ms QT Int : 374 ms P-R-T Axes : 065 -27 -26 degrees QTc Int : 489 ms Sinus tachycardia Leftward axis Low voltage QRS (limb leads) T wave abnormality, consider anterior ischemia Abnormal ECG Confirmed by PAULO ERNST, MO ([id number]), loan expeditor CORKY MCCLAIN ([id number]) on 11/19/2017 1:29:25 PM Referred By: PONCHO Confirmed By:MO BATES MD
[2017-11-16] MEDS: Enoxaparin 80 MG/0.8 ML Syringe SC ×2 (06:02→17:02)
[2017-11-16 06:11] LABS: Bedside Glucose 254 mg/dL (70-110)
[2017-11-16 06:25] LABS: Absolute Lymphocyte Count 2.37 X10^3/ul (0.83-4.51); Absolute Neutrophil Count 5.1 X10^3/uL (2.0-7.7); Anion Gap 10 (5-15); BUN 12 mg/dL (7-18); Basophil# 0.02 X10^3/uL; Basophil% 0.2 % (0-1); Calcium,Total 7.8 mg/dL (8.5-10.1); Chloride 101 mmol/L (98-107); EST Glomerular Filtration Rate 85 mL/min (>60); Eosinophil# 0.06 X10^3/uL; Eosinophils% 0.7 % (0-5); Est Glom Filt Rate - Afr Amer 103 mL/min (>60); Estimated Creatinine Clearance 83.29 ml/min; Glucose 259 mg/dL (70-110); Hematocrit 37.6 % (40-54); Hemoglobin 12.3 g/dl (13.0-16.5); Lymphocyte # 2.37 X10^3/ul (4.0); Lymphocyte % 27.8 % (19-41); Mean Corp Hgb Conc 32.7 g/gl (32-36); Mean Corpuscular Hgb 25.4 pg (27.0-32.0); Mean Corpuscular Volume 77.7 fL (80-94); Mean Platelet Vol. 11.1 fl (6.2-12.0); Monocyte% 10.6 % (0-10); Neutrophil # 5.14 X10^3/uL (2.7-7.7); Neutrophil % 60.3 % (47-70); Platelet Count 171 K/mm3 (150-450); Potassium 3.9 mmol/L (3.5-5.1); RBC Distribution Width CV 20.1 % (11.6-14.6); RBC Distribution Width SD 53.8 fl (35.1-43.9); Red Blood Count 4.84 M/mm3 (4.6-6.2); Sodium Level 133 mmol/L (136-145); White Blood Count 8.5 K/mm3 (4.4-11.0)
[2017-11-16 06:39] LABS: POSITIVE COUNT NO; POSITIVE DIFFERENTIAL NO
[2017-11-16 06:40] LABS: Differential Indicated SCAN CRITERIA MET; POSITIVE MORPHOLOGY YES
[2017-11-16] MEDS: Ipratropium/Albuterol Sulfate 3 ML AMPUL.NEB INHALATION ×4 (06:58→18:41)
[2017-11-16 07:01] LABS: Anisocytosis 2+; Differential Comment SCANNED
[2017-11-16] MEDS: Lisinopril 10 MG Tablet PO (09:43)
[2017-11-16 11:21] LABS: Bedside Glucose 235 mg/dL (70-110)
--- NOTE | 2017-11-16 11:23 | CASEMGMT ---
Face to Face with patient for initial transition planning/care coordination assessment. JOHNNY BRADSHAW introduced self and role at [facility] [place], pt voices understanding and consents to assessment at this time. Pt sitting up in chair in no distress at this time. Pt A/O x4 at this time and answers all questions appropriately at this time. Care providers, pharmacy, and demographics verified. See attached link. Pt voices no further concerns/needs at this time. Advised pt to ask for CM if any further questions/concerns/needs arise, voices understanding. Pt refuses to have PCP appt set up at this time and states 'I will take care of it.' This JOHNNY BRADSHAW emphasized to pt importance of following up at this time and pt voices understanding. PLAN: [place] JOHNNY BRADSHAW
--- NOTE | 2017-11-16 15:30 | PCM.PROGNOTE ---
<Abdirahman Carter - Last Filed: 11/16/17 15:30> Patient Problems: Active and Suspected Problems Acute respiratory failure with hypoxia (Acute) Subjective: Patient reports improvement in his shortness of breath with exertion today. He still has a little bit of dizziness and lightheadedness when he stands. He met with the oncologist today and plans to follow-up as an outpatient. He has no chest pain. He continues have paroxysmal coughing bouts with no mucus production. No fevers or chills overnight. He does not use any oxygen at home normally and is still requiring significant amounts by nasal cannula. - Physical Exam General: Alert, Oriented x3, Cooperative HEENT: Atraumatic, PERRLA, EOMI, Normocephalic Neck: Supple, No JVD, Negative Carotid Bruits Lungs: Clear to auscultation, Normal air movement Cardiovascular: No murmurs, Tachycardic Abdomen: Bowel Sounds Present, Soft, Non Tender Extremities: No edema, Capillary Refill Less than 3 Seconds Skin: No rashes, No breakdown Musculoskeletal: No Tenderness to Palpation of Joints or Extremities Neurological: Cranial nerves II-XII grossly intact Psych/Mental Status: Normal Affect, Appropriate Vital Signs Temp Pulse Resp BP Pulse Ox 98.4 F 127 H 16 116/73 94 11/16/17 09:42 11/16/17 15:07 11/16/17 14:39 11/16/17 09:42 11/16/17 09:42 Oxygen Flow Rate 4 Oxygen Delivery Method Nasal Cannula Weight: 81.6 kg Intake and Output for Last 24 Hours 11/14/17 11/15/17 11/16/17 23:59 23:59 23:59 Intake Total 4240 / 4240 1400 / 1400 Balance 4240 / 4240 1400 / 1400 Microbiology Past 72 Hours 11/15/17 19:46 Influenza Types A,B Direct FA (TIEN) - Final Mucosa - Nose Laboratory Tests Past 24 Hrs 11/16/17 11/16/17 05:00 05:00 WBC 8.5 RBC 4.84 Hgb 12.3 L Hct 37.6 L MCV 77.7 L MCH 25.4 L MCHC 32.7 RDW 20.1 H RDW Differential 53.8 H Plt Count 171 MPV 11.1 Immature Gran % (Auto) 0.400 Neut % (Auto) 60.3 Lymph % (Auto) 27.8 Casey % (Auto) 10.6 H Eos % (Auto) 0.7 Baso % (Auto) 0.2 Absolute Neuts (auto) 5.1 Absolute Lymphs (auto) 2.37 Total Counted Not Reportable Differential Comment SCANNED Anisocytosis 2+ Sodium 133 L Potassium 3.9 Chloride 101 Carbon Dioxide 22.0 Anion Gap 10 BUN 12 Creatinine 1.00 Estim Creat Clear Calc 83.29 Est GFR (MDRD) Af Amer 103 Est GFR (MDRD) Non-Af 85 BUN/Creatinine Ratio 12.0 Glucose 259 H Calcium 7.8 L POC Glucose 11/16/17 11/16/17 11/15/17 11:12 05:55 21:38 POC Glucose 235 H 254 H 363 H 11/15/17 11/15/17 18:01 16:40 POC Glucose 363 H 386 H Assessment/Plan Active and Suspected Problems Acute respiratory failure with hypoxia (Acute) 1. Worsening PE from september 03 medication noncompliance - (see CTA report) multiple moderate size PEs. Continue therapeutic Lovenox with plan to transition to [facility] as an outpatient when he is stable. He continues to have significant shortness of breath with exertion, increased O2 demands, and some dizziness and lightheadedness when he is on his feet. Repeat echo shows EF of 60%, normal LV systolic function, moderate 2+ TVI, moderate to severe pulmonary hypertension with pulmonary artery systolic pressure of 70 mmHg, which is slightly higher than the previous echo 2 months ago. -He continues to be significantly tachycardic. -The patient was hypotensive last night but this improved after receiving bolus of 1 L of IV normal saline. A repeat EKG was done at that time which did not reveal any acute changes. He did not have any chest pain. -Troponin indeterminate but flat. -Mild BNP elevation. No edema, lungs clear. Maybe 2/2 pulmonary HTN -Repeat EKG reveals sinus tachycardia with no acute changes. -No chest pain. -Tessalon Perles as needed for cough. -Influenza screen negative -Possible protein C deficiency, however oncology indicated that as the test was done during acute episode and with starting a blood thinners the results are not accurate and he will need outpatient testing. He will follow-up with them as an outpatient. 2. Acute hypoxic respiratory failure 2/2 above - incentive spirometry, aerosols. SOB, tachypnea, increased O2 requirement. 3. Pulmonary HTN-slightly higher than last echo. Recommend follow-up with pulmonology as an outpatient. 4. Mild leukocytosis -resolved. Afebrile. Doubt infectious etiology. 5. Type 2 DM - SSI adjusted. Restart metformin at discharge, holding per recent CT of the chest with contrast. DC planning: pending clinical improvement. Needs to establish PCP. This patient was seen by Abdirahman Carter PA-C under the supervision of Doctor Elida. <Raúl Marrero - Last Filed: 11/16/17 16:19> - Physical Exam Vital Signs Temp Pulse Resp BP Pulse Ox 98.5 F 110 H 16 91/56 L 94 11/16/17 15:35 11/16/17 15:35 11/16/17 15:35 11/16/17 15:35 11/16/17 15:35 Oxygen Flow Rate 55 Oxygen Delivery Method Nasal Cannula Weight: 81.6 kg Intake and Output for Last 24 Hours 11/14/17 11/15/17 11/16/17 23:59 23:59 23:59 Intake Total 4240 / 4240 1400 / 1400 Balance 4240 / 4240 1400 / 1400 Microbiology Past 72 Hours 11/15/17 19:46 Influenza Types A,B Direct FA (TIEN) - Final Mucosa - Nose Laboratory Tests Past 24 Hrs 11/16/17 11/16/17 05:00 05:00 WBC 8.5 RBC 4.84 Hgb 12.3 L Hct 37.6 L MCV 77.7 L MCH 25.4 L MCHC 32.7 RDW 20.1 H RDW Differential 53.8 H Plt Count 171 MPV 11.1 Immature Gran % (Auto) 0.400 Neut % (Auto) 60.3 Lymph % (Auto) 27.8 Casey % (Auto) 10.6 H Eos % (Auto) 0.7 Baso % (Auto) 0.2 Absolute Neuts (auto) 5.1 Absolute Lymphs (auto) 2.37 Total Counted Not Reportable Differential Comment SCANNED Anisocytosis 2+ Sodium 133 L Potassium 3.9 Chloride 101 Carbon Dioxide 22.0 Anion Gap 10 BUN 12 Creatinine 1.00 Estim Creat Clear Calc 83.29 Est GFR (MDRD) Af Amer 103 Est GFR (MDRD) Non-Af 85 BUN/Creatinine Ratio 12.0 Glucose 259 H Calcium 7.8 L POC Glucose 11/16/17 11/16/17 11/15/17 11:12 05:55 21:38 POC Glucose 235 H 254 H 363 H 11/15/17 11/15/17 18:01 16:40 POC Glucose 363 H 386 H Assessment/Plan This patient was seen in conjunction with Abdirahman Carter PA-C . I have independently interviewed and examined the patient and reviewed pertinent historical, laboratory, and other data. Please refer to Abdirahman Carter PA-C note for details of this patient's presentation, findings, and recommendations. I have reviewed Abdirahman Carter PA-C note and concur fully with documented findings. In brief, patient is a 47-year-old gentleman with history of previous PE noncompliant with therapy admitted with multiple moderate-sized PEs Physical Examination: GENERAL: cooperative HEENT: Clear conjunctiva, NECK; supple, normal thyroid, CHEST: Diminished to auscultation bilaterally, HEART: Regular S1 S2, no audible murmurs ABDOMEN: soft, non-tender, normoactive bowel sounds, EXTREMITIES: No edema, no clubbing, EXHIBITION CARVER: Awake, no lateralizing signs. SKIN: No rash Assessment: 1. Recurrent pulmonary embolism secondary to noncompliance 2. Acute hypoxic respiratory failure secondary to #1 3. Secondary benign hypertension 4. Diabetes mellitus type 2 5. Essential hypertension Recommendations: 1. I have discussed the results of my overview and impressions with the patient 2. Options for management were reviewed Code Visit Inpatient E&M: 12603 Subs Hosp L2
[2017-11-16 17:11] LABS: Bedside Glucose 285 mg/dL (70-110)
[2017-11-16] MEDS: Benzonatate 100 MG Capsule PO (20:03)
[2017-11-16 22:11] LABS: Bedside Glucose 304 mg/dL (70-110)
[2017-11-17] VITALS (14 sets, daily range): BP systolic 107–128; BP diastolic 63–78; PULSE 102–122; RESP 16; TEMP 36.6–36.9; O2SAT 88–98
[2017-11-17] MEDS: Enoxaparin 80 MG/0.8 ML Syringe SC (05:53)
[2017-11-17] MEDS: Ipratropium/Albuterol Sulfate 3 ML AMPUL.NEB INHALATION ×3 (06:39→14:48)
[2017-11-17 07:06] LABS: Bedside Glucose 210 mg/dL (70-110)
[2017-11-17 11:51] LABS: Bedside Glucose 341 mg/dL (70-110)
--- NOTE | 2017-11-17 15:13 | PCM.DC ---
- Discharge Diagnoses Current Active Problems: Current Active and Chronic Problems Acute respiratory failure with hypoxia (Acute) Protein C deficiency (Chronic) You will use the following diet at home:: Calorie/Carbohydrate Controlled (specify 1200, 1400, etc) - 1800 kendal/day, Cardiac Your food should be the consistency of: Regular Your liquids should be the consistency of: Regular/Thin Discharge Activity: Return to Normal Activity, - - use O2 as directed Allergies/Adverse Reactions: Allergies No Known Allergies Allergy (Verified 11/14/17 21:28) Medications to take at Discharge Albuterol IH (ProAir) [Proair Hfa] 1 puff INHALATION Q6H PRN PRN #1 inhaler 11/17/17 Apixaban [Eliquis] 5 mg PO BID #90 tab 11/17/17 Metformin HCl [Glucophage] 500 mg PO BIDCM #60 tab 11/17/17 The following prescriptions were given: Albuterol IH (ProAir) [Proair Hfa] 1 puff INHALATION Q6H PRN PRN #1 inhaler PRN Reason: Sob &/Or Wheezing Apixaban [Eliquis] 5 mg PO BID #90 tab Metformin HCl [Glucophage] 500 mg PO BIDCM #60 tab Primary Care Physician: Care Physician,No Primary [Primary Care Provider] - Please follow up with your Primary Care Physician in: 2 weeks Please Follow Up With: Maurisio Villegas DO When: 2 weeks Please Follow Up With: Andrew Robbins MD When: 2 weeks Proposed Discharge Date: 11/17/17
--- NOTE | 2017-11-17 15:15 | PCM.DC.SUM ---
<Abdirahman Carter - Last Filed: 11/17/17 15:15> Discharge Date and Diagnosis - Problem List Patient Problems: Active and Suspected Problems Acute respiratory failure with hypoxia (Acute) Date of Admission: 11/14/17 Date of Discharge: 11/17/17 - Primary Discharge Diagnosis Active and Suspected Problems Acute respiratory failure with hypoxia (Acute) Recurrent BL pulmonary emboli Type 2 diabetes mellitus Moderate to severe pulmonary hypertension - Secondary Discharge Diagnosis Chronic Problems Protein C deficiency (Chronic) Hospital Course and Treatment Imaging Results: Echocardiogram-EF 60%, 2+ TVI, pulmonary artery systolic pressure 70 mmHg, moderate severe pulmonary hypertension, compared to previous study of pulmonary pressures are slightly higher. CT/CTA Chest W/WO Contrast IMPRESSION: Multiple moderate size bilateral pulmonary emboli in the segmental and subsegmental arteries and in the right main pulmonary artery. Prah - oncology Operations: None Procedures: 2-D Echocardiogram Summary of Care Provided: Physical exam on day of discharge: General: Resting comfortably NAD Psych: A/Ox3 normal affect HEENT: [place]ARRLA AT NC Neck: Supple NT CV: Tachycardic but regular-no m/t/r/g/h Resp: CTA Abd: [id number] Soft NT no guarding or rigidity Ext: DP2+= no edema Skin: W/D normal turgor Lymph/Heme: No active bleeding or adenopathy Neuro: CN2-12 intact Hospital course: The patient is a 47 year old M who presented to the emergency room with a chief complaint of shortness of breath. He had been in the hospital about 2 months prior with shortness of breath and pulmonary emboli, at this point he was started on Eliquis and discharged home. The patient went home and did not take his medication. He stated that he had a disagreement with his PCP and decided he would no longer take any medications or have any medical follow-up. A CTA of the chest was obtained which demonstrated moderate sized multiple bilateral pulmonary emboli. He was placed on therapeutic Lovenox. He is placed on sliding scale insulin for his diabetes, we decided not to restart metformin immediately as he received contrast from the CTA. We did restart his lisinopril, however his blood pressure was low on lisinopril, and remained normal when lisinopril was discontinued, so we recommended not to continue this medication. He was in acute hypoxic respiratory failure and had increased oxygen demand requiring 5 L/min of oxygen to maintain saturations of at least 90%. Troponin was indeterminate but remained flat. He had a paroxysmal cough which he was given Tessalon Perles for while here. Influenza swab was obtained which was negative. He was given a new prescription for Eliquis. Looking back on prior coag panel it appeared that he had protein C deficiency so oncology was consulted. They felt that the test may have been skewed as he had active PE and blood thinners started so they recommended that he follow-up as an outpatient for new tests. He was advised to start following with a primary care physician. He had a repeat echocardiogram which demonstrated worsening of pulmonary hypertension. It was suggested that he follow-up with Dr. Villegas from pulmonology as an outpatient in 2 weeks. He was unable to be weaned off of oxygen and was recommended to continue using home oxygen with rest and activity, this was arranged for him. He was discharged home in stable condition and will need to follow-up with PCP, oncology, and pulmonology in 2 weeks. This patient was seen by Abdirahman Carter PA-C under the supervision of Doctor Marrero. [] Discharge Diet: 1800 Calorie Control Diet Discharge Activity: Return to Normal Activity, - - use O2 as directed Home Medications: Medications to take at Discharge Albuterol IH (ProAir) [Proair Hfa] 1 puff INHALATION Q6H PRN PRN #1 inhaler 11/17/17 Apixaban [Eliquis] 5 mg PO BID #90 tab 11/17/17 Metformin HCl [Glucophage] 500 mg PO BIDCM #60 tab 11/17/17 Following Prescrptions Were Given to Patient: Albuterol IH (ProAir) [Proair Hfa] 1 puff INHALATION Q6H PRN PRN #1 inhaler PRN Reason: Sob &/Or Wheezing Apixaban [Eliquis] 5 mg PO BID #90 tab Metformin HCl [Glucophage] 500 mg PO BIDCM #60 tab Primary Care Physician: Care Physician,No Primary [Primary Care Provider] - Please follow up with your Primary Care Physician in: 2 weeks Please Follow Up With: Maurisio Villegas DO When: 2 weeks Please Follow Up With: Andrew Robbins MD When: 2 weeks Disposition: Home Minutes spent on discharge:: 40 Patient Condition:: Stable Meaningful Use Info Meaningful Use Diagnoses (Choose all that apply): VTE - VTE Anticoag overlap given w/in hospital stay or rx'd at dc?: No Pt receive overlap for 5 days?: No Reason overlap not ordered, prescribed, or given for 5 days: Procedure Not Indicated <Raúl Marrero - Last Filed: 11/17/17 16:50> Discharge Date and Diagnosis - Primary Discharge Diagnosis Active and Suspected Problems Acute respiratory failure with hypoxia (Acute) - Secondary Discharge Diagnosis Chronic Problems Protein C deficiency (Chronic) Hospital Course and Treatment Summary of Care Provided: The patient is a 47 year old M with history of previous PE noncompliant with therapy admitted with multiple moderate-sized PEs Assessment: 1. Recurrent pulmonary embolism secondary to noncompliance 2. Acute hypoxic respiratory failure secondary to #1 3. Secondary benign hypertension 4. Diabetes mellitus type 2 5. Essential hypertension Hospital course as elicited above by Abdirahman Carter PA-C Time spent on discharge 35 minutes Code Visit Inpatient E&M: [id number] Disch Hosp
--- NOTE | 2017-11-17 15:22 | DS.PCM_ITS ---
<Abdirahman Crater - Last Filed: 11/17/17 15:15> Discharge Date and Diagnosis - Problem List Patient Problems: Active and Suspected Problems Acute respiratory failure with hypoxia (Acute) Date of Admission: 11/14/17 Date of Discharge: 11/17/17 - Primary Discharge Diagnosis Active and Suspected Problems Acute respiratory failure with hypoxia (Acute) Recurrent BL pulmonary emboli Type 2 diabetes mellitus Moderate to severe pulmonary hypertension - Secondary Discharge Diagnosis Chronic Problems Protein C deficiency (Chronic) Hospital Course and Treatment Imaging Results: Echocardiogram-EF 60%, 2+ TVI, pulmonary artery systolic pressure 70 mmHg, moderate severe pulmonary hypertension, compared to previous study of pulmonary pressures are slightly higher. CT/CTA Chest W/WO Contrast IMPRESSION: Multiple moderate size bilateral pulmonary emboli in the segmental and subsegmental arteries and in the right main pulmonary artery. Prah - oncology Operations: None Procedures: 2-D Echocardiogram Summary of Care Provided: Physical exam on day of discharge: General: Resting comfortably NAD Psych: A/Ox3 normal affect HEENT: [place]ARRLA AT NC Neck: Supple NT CV: Tachycardic but regular-no m/t/r/g/h Resp: CTA Abd: [id number] Soft NT no guarding or rigidity Ext: DP2+= no edema Skin: W/D normal turgor Lymph/Heme: No active bleeding or adenopathy Neuro: CN2-12 intact Hospital course: The patient is a 47 year old M who presented to the emergency room with a chief complaint of shortness of breath. He had been in the hospital about 2 months prior with shortness of breath and pulmonary emboli, at this point he was started on Eliquis and discharged home. The patient went home and did not take his medication. He stated that he had a disagreement with his PCP and decided he would no longer take any medications or have any medical follow-up. A CTA of the chest was obtained which demonstrated moderate sized multiple bilateral pulmonary emboli. He was placed on therapeutic Lovenox. He is placed on sliding scale insulin for his diabetes, we decided not to restart metformin immediately as he received contrast from the CTA. We did restart his lisinopril , however his blood pressure was low on lisinopril, and remained normal when lisinopril was discontinued, so we recommended not to continue this medication. He was in acute hypoxic respiratory failure and had increased oxygen demand requiring 5 L/min of oxygen to maintain saturations of at least 90%. Troponin was indeterminate but remained flat. He had a paroxysmal cough which he was given Tessalon Perles for while here. Influenza swab was obtained which was negative. He was given a new prescription for Eliquis. Looking back on prior coag panel it appeared that he had protein C deficiency so oncology was consulted. They felt that the test may have been skewed as he had active PE and blood thinners started so they recommended that he follow-up as an outpatient for new tests. He was advised to start following with a primary care physician. He had a repeat echocardiogram which demonstrated worsening of pulmonary hypertension. It was suggested that he follow-up with Dr. Villegas from pulmonology as an outpatient in 2 weeks. He was unable to be weaned off of oxygen and was recommended to continue using home oxygen with rest and activity , this was arranged for him. He was discharged home in stable condition and will need to follow-up with PCP, oncology, and pulmonology in 2 weeks. This patient was seen by Abdirahman Carter PA-C under the supervision of Doctor Marrero. [] Discharge Diet: 1800 Calorie Control Diet Discharge Activity: Return to Normal Activity, - - use O2 as directed Home Medications: Medications to take at Discharge Albuterol IH (ProAir) [Proair Hfa] 1 puff INHALATION Q6H PRN PRN #1 inhaler Apixaban [Eliquis] 5 mg PO BID #90 tab 11/17/17 Metformin HCl [Glucophage] 500 mg PO BIDCM #60 tab 11/17/17 Following Prescrptions Were Given to Patient: Albuterol IH (ProAir) [Proair Hfa] 1 puff INHALATION Q6H PRN PRN #1 inhaler PRN Reason: Sob &/Or Wheezing Apixaban [Eliquis] 5 mg PO BID #90 tab Metformin HCl [Glucophage] 500 mg PO BIDCM #60 tab Primary Care Physician: Care Physician,No Primary [Primary Care Provider] - Please follow up with your Primary Care Physician in: 2 weeks Please Follow Up With: Maurisio Villegas DO When: 2 weeks Please Follow Up With: Andrew Robbins MD When: 2 weeks Disposition: Home Minutes spent on discharge:: 40 Patient Condition:: Stable Meaningful Use Info Meaningful Use Diagnoses (Choose all that apply): VTE - VTE Anticoag overlap given w/in hospital stay or rx'd at dc?: No Pt receive overlap for 5 days?: No Reason overlap not ordered, prescribed, or given for 5 days: Procedure Not Indicated <Raúl Marrero - Last Filed: 11/17/17 16:50> Discharge Date and Diagnosis - Primary Discharge Diagnosis Active and Suspected Problems Acute respiratory failure with hypoxia (Acute) - Secondary Discharge Diagnosis Chronic Problems Protein C deficiency (Chronic) Hospital Course and Treatment Summary of Care Provided: The patient is a 47 year old M with history of previous PE noncompliant with therapy admitted with multiple moderate-sized PEs Assessment: 1. Recurrent pulmonary embolism secondary to noncompliance 2. Acute hypoxic respiratory failure secondary to #1 3. Secondary benign hypertension 4. Diabetes mellitus type 2 5. Essential hypertension Hospital course as elicited above by Abdirahman Carter PA-C Time spent on discharge 35 minutes Code Visit Inpatient E&M: [id number] Disch Hosp
--- NOTE | 2017-11-17 15:33 | CASEMGMT ---
Per Delores RN, pt qualified for home oxygen at this time. This RN CM to room and pt states would like [facility] for home oxygen at this time. Referral faxed to [facility] at this time and call placed to Hazel at [facility] and she is aware of pt at this time. Hazel also aware that pt is up for discharge at this time, voices understanding of all. Cristobal TURNER CM
== END 2017-11-17 17:44 | disposition home or self-care (01) | DRG 78 ==
LOC: ED 23:01 → PCU 11-15 00:44
PROVIDERS: Hospitalist; Physician Assistant; Admitting Provider Internal Medicine; Emergency Provider Emergency Medicine; Visit Provider Internal Medicine
DX: I26.99 Other pulmonary embolism without acute cor pulmonale (principal); J96.01 Acute respiratory failure with hypoxia; I15.9 Secondary hypertension, unspecified; E11.9 Type 2 diabetes mellitus without complications; D68.59 Other primary thrombophilia; Z87.891 Personal history of nicotine dependence; Z86.711 Personal history of pulmonary embolism; I27.20 Pulmonary hypertension, unspecified; Z79.84 Long term (current) use of oral hypoglycemic drugs
CPT/HCPCS: 36415; 71275; 80048; 82962; 83880; 84484; 85025; 85027; 87633; 87804; 93005; 93306; 94640; 97802; 99285; J7030; J7040; Q9967; A4216

== ENCOUNTER → 2017-12-01 15:44 | Outpatient (CLI) | payer MEDICAID, SELFPAY ==
[2017-12-01 17:41] LABS: Absolute Lymphocyte Count 2.22 X10^3/ul (0.83-4.51); Absolute Neutrophil Count 5.5 X10^3/uL (2.0-7.7); Basophil# 0.02 X10^3/uL; Basophil% 0.2 % (0-1); Eosinophil# 0.16 X10^3/uL; Eosinophils% 1.9 % (0-5); Hematocrit 43.7 % (40-54); Hemoglobin 13.6 g/dl (13.0-16.5); Lymphocyte # 2.22 X10^3/ul (4.0); Lymphocyte % 25.8 % (19-41); Mean Corp Hgb Conc 31.1 g/gl (32-36); Mean Corpuscular Hgb 24.4 pg (27.0-32.0); Mean Corpuscular Volume 78.3 fL (80-94); Mean Platelet Vol. 10.1 fl (6.2-12.0); Monocyte% 8.1 % (0-10); Neutrophil # 5.51 X10^3/uL (2.7-7.7); Neutrophil % 63.9 % (47-70); Platelet Count 353 K/mm3 (150-450); RBC Distribution Width SD 51.1 fl (35.1-43.9); Red Blood Count 5.58 M/mm3 (4.6-6.2); White Blood Count 8.6 K/mm3 (4.4-11.0)
[2017-12-01 17:43] LABS: POSITIVE COUNT NO; POSITIVE DIFFERENTIAL NO; POSITIVE MORPHOLOGY NO
[2017-12-01 18:05] LABS: ALB/GLOB Ratio 0.8 RATIO (0.9-2.4); AST(SGOT) 41 U/L (15-37); Alanine Aminotransfer ALT/SGPT 79 U/L (16-61); Albumin, Serum 3.7 g/dL (3.2-5.0); Alkaline Phosphatase 66 U/L (45-117); Anion Gap 6 (5-15); BUN 9 mg/dL (7-18); BUN/Creat Ratio 10.3 RATIO (10-20); Calcium,Total 8.9 mg/dL (8.5-10.1); Chloride 102 mmol/L (98-107); Creatinine, Serum 0.87 mg/dL (0.70-1.30); EST Glomerular Filtration Rate 100 mL/min (>60); Est Glom Filt Rate - Afr Amer 121 mL/min (>60); Globulin 4.4 g/dL (2.2-4.2); Glucose 199 mg/dL (70-110); Potassium 4.3 mmol/L (3.5-5.1); Protein, Total 8.1 g/dL (6.4-8.2); Sodium Level 138 mmol/L (136-145)
== END ==
PROVIDERS: Visit Provider Internal Medicine Medical Oncology
DX: I26.99 Other pulmonary embolism without acute cor pulmonale (principal)
CPT/HCPCS: 36415; 80053; 81240; 81241; 81291; 85025

== ENCOUNTER → 2018-06-04 12:40 | Outpatient (CLI) | payer MEDICAID, SELFPAY ==
[2018-06-04 14:45] LABS: D-Dimer Quantitative (DVT/PE) 0.27 FEU/ug/m (0.27-0.49)
== END ==
PROVIDERS: Family Provider Family Medicine; PCP Family Medicine; Visit Provider Internal Medicine Critical Care Medicine
DX: I26.99 Other pulmonary embolism without acute cor pulmonale (principal)
CPT/HCPCS: 36415; 85379